=== PATIENT | female | born 1985 | race African-American/Black ===

== ENCOUNTER 2020-03-12 10:06 | Emergency (ER) | payer OTHER ==
[~2020-03-12] VITALS: Ht 162.6 cm; Wt 86.2 kg
--- NOTE | ~2020-03-12 | EMS ---
[address] [address] EMS Patient Care Report Name: MALIKA MURILLO Room #: PRE M.R.#: [id number] Admission: Attend Phys: Discharge: Date of : 83 Report #: [id number] THIS REPORT FOR: //name// Report Transmitted: 03/12/2020 10:04 EMS Care Summary [place], [place]/[facility] Incident [id number] @ 03/12/2020 09:14 Incident Location [address] [place] [address] Patient MALIKA MURILLO Female, 34 Years 1985 Patient Address [address] [facility] [place] [address] Patient History None Reported, Patient Allergies No known allergies, Patient Medications None Reported, Chief Complaint My stomach and back hurt Disposition Transported No Lights/[place] [facility] Reason Abdominal Pain/Problems Transported To [facility] Narrative Called to the scene for abdominal pain. Upon arrival, pt was CALDWELL x 3 lying on the couch c/o abd and back pain. She said this started on Wednesday and has not went away. She denies being , no trauma reported. She c/o nausea. [facility] [address] [place] [address] EMS Patient Care Report Name: MALIKA MURILLO Room #: PRE ER M.R.#: [id number] Admission: Attend Phys: Discharge: Date of : 83 Report #: [id number] Had had a BM and urinated w/o incident. She requests transport to [facility] ER for further eval & tx. Vitals obtained. Pt moved to the EMS cot and loaded into the ambulance w/o incident. Vitals repeated. 18g IV and D-stick. En route: no changes. pt said position of comfort was laying flat. RR to [facility]. Arrived: pt taken to ER # and moved to their bed w/o incident. Pt care & report to ER staff. Initial Vitals @09:41P: 94,R: 16,BP: 157/107,Pain: 10/10,GCS: 15,Glucose: 179,SpO2: 98,Revised Trauma: 12, @09:30P: 103,R: 16,BP: 118/83,Pain: 10/10,GCS: 15,SpO2: 99,Revised Trauma: 12, Assessments @09:29MENTAL:Person Oriented,Time Oriented,Place Oriented,Event Oriented,SKIN:Diaphoresis,HEENT:LUNG SOUNDS:General: Nausea,Left Upper: Other,Left Upper: Guarding,Right Upper: Guarding,Right Upper: Other,Left Lower: Guarding,Right Lower: Other,Right Lower: Guarding,Left Lower: Other,Right Upper: JV,ABDOMEN:General: Nausea,Left Upper: Other,Left Upper: Guarding,Right Upper: Guarding,Right Upper: Other,Left Lower: Guarding,Right Lower: Other,Right Lower: Guarding,Left Lower: Other,Right Upper: JV,PELVIS//GI:No Abnormalities,EXTREMITIES:Left Arm: No Abnormalities,Right Arm: No Abnormalities,Left Leg: No Abnormalities,Right Leg: No Abnormalities,PULSE:Radial: 2+ Normal,NEURO:No Abnormalities, Impression Abdominal Pain Procedures @09:33Saline Lock 8cc (18 ga) Site: Antecubital-LeftResponse: UnchangedSucceeded@09:47StretcherResponse: Unchanged@09:29ALS AssessmentResponse: UnchangedSucceeded Timeline 09:12,Call Received 09:12,Dispatch Notified 09:14,Dispatched 09:14,En Route 09:28,On Scene 09:29,At Patient 09:29,ALS Assessment,Response: UnchangedSucceeded, 09:30,BP: 118/83 M,PULSE: 103,RR: 16 R,SPO2: 99 Ox,ETCO2: ,BG: ,PAIN: 10,GCS: 15, 09:33,Saline Lock 8cc 18 ga Site: Antecubital-Left,Response: UnchangedSucceeded, 09:40,Depart Scene 09:41,BP: 157/107 M,PULSE: 94,RR: 16 R,SPO2: 98 Ox,ETCO2: ,B,PAIN: 10,GCS: 15, [address] [address] EMS Patient Care Report Name: MALIKA MURILLO Room #: PRE M.R.#: [id number] Admission: Attend Phys: Discharge: Date of : 83 Report #: [id number] 09:47,Stretcher,Response: Unchanged 10:03,At Destination 10:15,Call Closed Disclaimer [email or web address] Copyright 2020 [email or web address] This EMS Care Summary contains data elements from the applicable legal record (which may be displayed differently). It is designed to provide pertinent information for the following purposes: continuity of care, clinical quality, and state data reporting. The complete legal record is available to ED staff and administrators of the receiving hospital in [employer]'s Patient Tracker. All data is provided "as is."
[2020-03-12 10:58] LABS: BASOPHILS 0.3 % (0.0-2.0); EOSINOPHILS 0.3 % (0.0-3.0); HEMOGLOBIN 12.8 gm/dL (12.0-15.0)
[2020-03-12 11:00] LABS: HEMATOCRIT 38.9 % (37.0-47.0); LYMPHOCYTES 7.3 % (24.0-44.0); MCH 28.8 pg (26.0-34.0); MCHC 32.9 g/dL (28.0-37.0); MCV 87.7 fL (80.0-100.0); MONOCYTES 3.7 % (1.0-8.0); PLATELET COUNT 256 thou/uL (150-400); POLYS 88.4 % (36.0-66.0); RBC 4.43 mil/uL (4.20-5.00); RDW 14.6 % (10.5-14.5); WBC 15.9 thou/uL (4.0-11.0)
[2020-03-12 11:03] LABS: ANION GAP 9 mmol/L (7-16); BUN 8 mg/dL (7-18); CALCIUM 8.9 mg/dL (8.5-10.1); CHLORIDE 104 mmol/L (98-107); CO2 25 mmol/L (21-32); CREATININE 0.9 mg/dL (0.6-1.0); GLUCOSE 144 mg/dL (74-106); POTASSIUM 4.3 mmol/L (3.5-5.1); SODIUM 138 mmol/L (136-145)
[2020-03-12 11:17] LABS: ALBUMIN 3.2 g/dL (3.4-5.0); DIRECT BILIRUBIN < 0.1 mg/dL (<0.1-0.2); LIPASE 85 U/L (73-393); SGOT 16 U/L (15-37); SGPT 21 U/L (30-65); TOTAL BILIRUBIN 0.3 mg/dL (0.2-1.0); TOTAL PROTEIN 7.6 g/dL (6.4-8.2)
[2020-03-12 12:07] LABS: URINE BILIRUBIN NEGATIVE (Negative); URINE BLOOD NEGATIVE (Negative); URINE CLARITY CLEAR; URINE COLOR YELLOW; URINE GLUCOSE-RANDOM* NEGATIVE (Negative); URINE KETONES NEGATIVE (Negative); URINE LEUKOCYTES-REFLEX NEGATIVE (Negative); URINE NITRITE-REFLEX NEGATIVE (Negative); URINE PROTEIN (DIPSTICK) NEGATIVE (Negative); URINE SPECIFIC GRAVITY >= 1.030 (1.005-1.035); URINE UROBILINOGEN 0.2 E.U./dl (0.2-1.0)
[2020-03-12] MEDS ORDERED: NORCO 5-325 TA1 EAC2 PO (13:41)
[2020-03-12] MEDS ORDERED: OMEPRAZOLE 20 M20 M1 PO (13:41)
[2020-03-12 14:14] VITALS: BP 128/81
== END 2020-03-12 14:15 | disposition home or self-care (01) ==
LOC: ER 10:06
PROVIDERS: Emergency Medicine
DX: R10.84 Generalized abdominal pain (principal)